=== PATIENT | male | born 1965 | race Caucasian/White ===

== ENCOUNTER → 2019-03-12 14:42 | Outpatient (CLI) | payer SELFPAY | PROVIDERS: Referring Provider Nurse Practitioner Family; Visit Provider Nurse Practitioner Family | DX: L03.119 Cellulitis of unspecified part of limb (principal) | CPT/HCPCS: 87070; 87077; 87186; 87205 ==

== ENCOUNTER 2024-09-11 19:17 | Emergency (ER) | payer OTHER, SELFPAY ==
[2024-09-11 19:17] VITALS: BP 187/124; PULSE 72; RESP 16; TEMP 36.8; O2SAT 99; BMI 33.1
--- NOTE | 2024-09-11 20:19 | CT_ITS ---
PROCEDURE: ABDOMEN/PELVIS W IV CONT ONLY 09/11/2024 REASON FOR EXAM: ABDOMINAL PAIN TECHNIQUE: Abdomen and pelvis CT with intravenous contrast. Coronal and Sagittal reconstruction series were provided. PATIENT PREPARATION: Per protocol ORAL CONTRAST TYPE: None. AMOUNT: mL CONTRAST: Omnipaque 350 VOLUME: 100 mL Not Provided Gauge IV One or more dose reduction techniques were used (e.g., Automated exposure control, adjustment of the mA and/or kV according to patient size, use of iterative reconstruction technique. COMPARISON: None FINDINGS: Lung bases: Left lower lobe calcified granuloma. Liver: Homogeneous attenuation. No focal lesion. Gallbladder: No ductal dilation. Gallbladder is unremarkable. Spleen: Normal size. Pancreas: Mild fatty atrophy of the pancreas. Adrenals: Unremarkable Kidneys: Normal renal sizes. No hydronephrosis. Bladder: Decompressed with Sanders catheter in place. Reproductive Organs: No pelvic mass. Bowel: Stomach is unremarkable. Postoperative changes partial colectomy with colocolic anastomosis. No bowel dilation or wall thickening. Large colonic stool with fecal impaction. Appendix: The appendix is not identified. There is no inflammatory process identified in the right lower quadrant to suggest appendicitis. Lymph nodes: No suspicious lymph node enlargement. Vasculature: The abdominal aorta and IVC are normal. Peritoneum / Retroperitoneum: No ascites. No pneumoperitoneum. Bones: Mild degenerative changes. CT/Abdomen/Pelvis W IV Cont ONLY IMPRESSION: No acute findings in the abdomen and pelvis. Large colonic stool with fecal impaction. Reading Location: [facility]
[2024-09-11 20:24] LABS: Mucous, Urine 0 SEEN /hpf (<or=2+)
[2024-09-11 20:28] LABS: Absolute Lymphocyte Count 1.08 X10^3/uL (0.83-4.51); Absolute Neutrophil Count 9.5 X10^3/uL (2.0-7.7); Basophil# 0.06 X10^3/uL; Basophil% 0.5 % (0-1); Eosinophil# 0.07 X10^3/uL; Eosinophils% 0.6 % (0-5); Hematocrit 43.6 % (40-54); Hemoglobin 15.7 g/dL (13.0-16.5); Lymphocyte # 1.08 X10^3/ul (0.83-4.51); Lymphocyte % 9.3 % (19-41); Mean Corpuscular Hgb 30.7 pg (27.0-32.0); Mean Corpuscular Volume 85.2 fL (80-94); Mean Platelet Vol. 10.2 fl (6.2-12.0); Monocyte% 6.9 % (0-10); NRBC Flagged by Analyzer 0 % (0-5); Neutrophil # 9.47 X10^3/uL (2.7-7.7); Platelet Count 176 K/mm3 (150-450); RBC Distribution Width CV 12.4 % (11.6-14.6); RBC Distribution Width SD 38.1 fl (35.1-43.9); Red Blood Count 5.12 M/mm3 (4.6-6.2); White Blood Count 11.6 K/mm3 (4.4-11.0)
[2024-09-11 20:29] LABS: Color, Urine Yellow (Yellow); Glucose, Dipstick Normal (Normal); Ketone-Dipstick Negative (Negative); Leukocyte Esterase-Dipstick Negative /ul (Negative); Nitrite-Dipstick Negative (Negative); Occult Blood-Urine 25 /ul (Negative); Protein-Dipstick 15 mg/dl (Negative); Urine Bilirubin Dipstick Negative (Negative); Urine Clarity Clear (Clear); Urine Urobilinogen Normal (Normal); Urine pH 6.5 (5.0 - 8.0)
[2024-09-11 20:41] LABS: Amorphous Sediment 2+; Bacteria 4+ /hpf (None Seen); Red Blood Cells-Urine 0-5 SEEN /hpf (0-5); Squamous Epithelial Cells - UA 0-5 SEEN /hpf (0-5); White Blood Cells 0-5 SEEN /hpf (0-5)
[2024-09-11 21:00] LABS: Anion Gap 14 (5-15); BUN 23 mg/dL (4-19); BUN/Creat Ratio 27.2 RATIO (10-20); Calcium,Total 9.4 mg/dL (7.6-11.0); Carbon Dioxide 22.3 mmol/L (21.0-32.0); Chloride 101 mmol/L (98-108); Creatinine, Serum 0.83 mg/dL (0.70-1.20); EST Glomerular Filtration Rate 100 (>60); Estimated Creatinine Clearance 114.74 ml/min (50-250); Glucose 149 mg/dL (70-99); Potassium 3.9 mmol/L (3.3-5.1); Sodium Level 138 mmol/L (133-145)
[2024-09-11 21:17] VITALS: PULSE 72; RESP 18; O2SAT 98
--- NOTE | 2024-09-11 22:46 | EX.ED.DYSGE1 ---
HPI History of Present Illness Chief Complaint: Constipation Informant: patient and spouse/S.O. Narrative Narrative: 59-year-old male presenting to the emergency room with an inability to defecate or urinate. Patient states that he began to feel like he needed to have a bowel movement around 1500 hrs. He decided to wait till he got home. He states that he sat down on the commode and was simply unable to have a bowel movement. With a lot of pressure in the rectal area. States he noticed he was unable to urinate. He states he feels very uncomfortable. He notes a prior history of colon cancer with 18 inches removed. [facility] Medical History Colon cancer Allergy/AdvReac Type Severity Reaction Status Date / Time No Known Allergies Allergy Verified 09/11/24 19:19 Social History Smoking Status: Unknown if ever smoked ROS ROS ED Constitutional Constitutional ED: Denies chills or weight loss Eyes Eyes: Denies change in vision or diplopia ENT ENT ED: Denies ear pain, rhinorrhea or sore throat Cardiovascular Cardiovascular: Denies chest pain, orthopnea, palpitations or racing heartbeat Respiratory/Chest Respiratory/Chest: Denies cough, dyspnea or orthopnea Gastrointestinal Gastrointestinal: Reports abdominal pain and constipation; Denies diarrhea, nausea or vomiting Genitourinary Genitourinary ED: Reports other Details: Inability to urinate ; Denies dysuria, hematuria or urinary frequency Musculoskeletal Musculoskeletal: Denies arthralgias or myalgias Integumentary Denies abscess or rash Neurologic Neurologic: Denies headache(s) or weakness Psychiatric Psychiatric: Denies anxiety, depression, suicidal ideation or suicidal thoughts Endocrine Endocrinology: Denies polydipsia, polyphagia or polyuria Allergic/Immunologic Allergic/Immunologic ED: Denies mouth swelling, tongue swelling or urticaria EXAM Physical Exam Const Vital Signs: 09/11/24 19:17 09/11/24 21:17 Temperature 98.2 F Temperature Source Oral Pulse Rate 72 72 Respiratory Rate 16 18 Blood Pressure 187/124 H Blood Pressure Mean 145 Pulse Ox 99 98 Oxygen Delivery Method Room Air Room Air Positive well nourished and well developed General Appearance ED: well developed HEENT Reports normocephalic, head/scalp atraumatic and moist mucous membranes Eyes PERRL and EOMs intact bilaterally Neck no lymphadenopathy, supple and no JVD Resp normal respiratory effort and clear to auscultation bilaterally Cardio regular rate, regular rhythm and no murmurs GI normal to inspection, nondistended, normoactive bowel sounds and non-tender Auscultation: normoactive bowel sounds Palpation: soft; Negative for tender, guarding or rebound tenderness present Narrative: Sanders catheter present Back/Spine no CVA tenderness and normal ROM Extremity normal to inspection General Extremety ED: Negative for edema General Extremity: Negative for edema Neuro oriented x3 and CN's II-XII intact bilaterally Sensorium / Orientation: alert Motor Exam: strength 5/5 throughout Psych mental status grossly normal Mood & Affect: Negative for depressed or tearful Skin no rashes or lesions noted and no wounds MDM MDM MDM Narrative Medical decision making narrative: Differential diagnosis includes but not limited to acute urinary retention acute kidney injury UTI constipation fecal impaction volvulus bowel obstruction colonic stricture Basic blood works obtained nonspecific elevation of white count 11.6. BMP with a glucose of 149. Sanders catheter was placed by nursing after they noted urinary retention on bladder scan. Over [address] of the abdomen pelvis was obtained read by radiology reviewed by myself. This demonstrates a lot of stool in the rectosigmoid region. Patient received a soapsuds enema and had large return of formed stool. He states he feels significantly better. Return to remove the catheter and ensure that he can urinate. If he can urinate he will be discharged home with follow-up as needed. He is unable to urinate we will place catheter and have him follow-up with urology. History & Record Review Discussion w/independent historian: Patient and Significant other Lab Data Attestation: I reviewed the patient's lab results. Labs: Laboratory Results - last 24 hr 09/11/24 20:00 WBC 11.6 H RBC 5.12 Hgb 15.7 Hct 43.6 MCV 85.2 MCH 30.7 MCHC 36.0 RDW Std Deviation 38.1 RDW Coeff of Nicol 12.4 Plt Count 176 MPV 10.2 Immature Gran % (Auto) 0.700 Neut % (Auto) 82.0 H Lymph % (Auto) 9.3 L Giles % (Auto) 6.9 Eos % (Auto) 0.6 Baso % (Auto) 0.5 Absolute Neuts (auto) 9.5 H Absolute Lymphs (auto) 1.08 Nucleated RBC % 0 Sodium 138 Potassium 3.9 Chloride 101 Carbon Dioxide 22.3 Anion Gap 14 BUN 23 H Creatinine 0.83 Estim Creat Clear Calc 114.74 Est GFR (MDRD) Non-Af 100 BUN/Creatinine Ratio 27.2 H Glucose 149 H Calcium 9.4 Urine Color Yellow Urine Clarity Clear Urine pH 6.5 Ur Specific [place] 1.020 Urine Protein 15 H Urine Glucose (UA) Normal Urine Ketones Negative Urine Occult Blood 25 H Urine Nitrite Negative Urine Bilirubin Negative Urine Urobilinogen Normal Ur Leukocyte Esterase Negative Urine RBC 0-5 SEEN Urine WBC 0-5 SEEN Ur Squamous Epith Cells 0-5 SEEN Amorphous Sediment 2+ Urine Bacteria 4+ Urine Mucus 0 SEEN Radiography Diagnostic Testing: Clinical Impression(s) from Imaging Studies Abdomen/Pelvis CT 09/11/24 20:19 IMPRESSION: No acute findings in the abdomen and pelvis. Large colonic stool with fecal impaction. Reading Location: [facility] Discharge Plan Triage Chief Complaint: Constipation ED Provider: Himanshu Figueroa Dx/Rx/DC Orders Primary Care Provider: Donald Martinez Referrals: Donald Martinez MD [Primary Care Provider] - Print Language: Salvadorean
[2024-09-11] MEDS: 0.9% Normal Saline (1000mL) 1,000 ML 999 ML IV (22:56)
[2024-09-11 22:57] VITALS: BP 220/89; PULSE 70; RESP 18; O2SAT 96
[2024-09-11 23:37] VITALS: BP 223/96; PULSE 65; RESP 18; O2SAT 98
== END 2024-09-11 23:44 | disposition home or self-care (01) ==
PROVIDERS: Emergency Provider Emergency Medicine; PCP Family Medicine; Visit Provider Emergency Medicine
DX: K59.00 Constipation, unspecified (principal); R33.9 Retention of urine, unspecified; Z90.49 Acquired absence of other specified parts of digestive tract; Z85.038 Personal history of other malignant neoplasm of large intestine
CPT/HCPCS: 51702; 74177; 80048; 81001; 85025; 96360; 99285; Q9967; A4216

== ENCOUNTER → 2024-09-28 | Outpatient (CLI) | payer SELFPAY ==
--- NOTE | 2024-09-28 10:50 | RAD_ITS ---
PROCEDURE: CHEST PA AND LATERAL 09/28/2024 REASON FOR EXAM: MALIGNANT NEOPLASM OF SIGMOID COLON, HYPERTENSION TECHNIQUE: Frontal and lateral views of the chest. COMPARISON: No relevant prior. FINDINGS: Lungs: Calcified granuloma, left lower lobe. Small area of discoid atelectasis at the left lung base. No pneumonia or congestion. Pleura: No pleural effusions, thickening, or pneumothorax. Heart: Normal in size and configuration. Mediastinum/[place]: Unremarkable. Great vessels: Atherosclerotic and mildly tortuous aorta. Bones/soft tissues: Mild multilevel spondylosis. RAD/Chest PA and Lateral IMPRESSION: No active cardiopulmonary disease. Reading Location: [facility]
[2024-09-28 13:01] LABS: Cholesterol 158 mg/dL (<=200); High Density Lipoprotein 37 mg/dL
[2024-09-28 13:15] LABS: ALB/GLOB Ratio 1.6 RATIO (0.9-2.4); AST(SGOT) 22 U/L (<=37); Alanine Aminotransfer ALT/SGPT 21 U/L (<=46); Albumin, Serum 4.2 g/dL (3.4-4.8); Alkaline Phosphatase 76 U/L (40-129); Anion Gap 11 (5-15); BUN 21 mg/dL (4-19); BUN/Creat Ratio 22.6 RATIO (10-20); Calcium,Total 8.3 mg/dL (7.6-11.0); Carbon Dioxide 25.4 mmol/L (21.0-32.0); Chloride 104 mmol/L (98-108); Creatinine, Serum 0.91 mg/dL (0.70-1.20); EST Glomerular Filtration Rate 96 (>60); Globulin 2.7 g/dL (2.2-4.2); Glucose 93 mg/dL (70-99); Potassium 4.1 mmol/L (3.3-5.1); Protein, Total 6.9 g/dL (5.9-8.4); Sodium Level 140 mmol/L (133-145); Total Bilirubin 0.42 mg/dL (0.00-1.30)
[2024-09-28 13:32] LABS: Microalbumin,Random Urine < 12.0 mg/L (NO RANGE EST.); Microalbumin:Creatinine Ratio UNABLE TO CALCULATE mg/g CRE
== END | disposition home or self-care (01) ==
PROVIDERS: PCP Family Medicine; Referring Provider Family Medicine; Visit Provider Family Medicine
DX: I10 Essential (primary) hypertension (principal); C18.7 Malignant neoplasm of sigmoid colon
CPT/HCPCS: 36415; 71046; 80053; 82043; 82378; 82465; 82570; 83718; 84443